=== PATIENT | male | born 1995 | race Caucasian/White ===

== ENCOUNTER 2020-11-10 21:54 | Emergency (ER) | payer OTHER ==
[~2020-11-10] VITALS: Ht 185.4 cm; Wt 113.4 kg
[2020-11-10 22:00] VITALS: BP_SYST 136
[2020-11-10 22:30] VITALS: BP_SYST 136
== END 2020-11-10 22:30 | disposition home or self-care (01) ==
LOC: SED 21:54
DX: R55 Syncope and collapse (principal); K21.9 Gastro-esophageal reflux disease without esophagitis; F17.200 Nicotine dependence, unspecified, uncomplicated
CPT/HCPCS: 82962; 99283